=== PATIENT | female | born 1960 | race Caucasian/White ===

== ENCOUNTER 2021-11-03 06:27 | Day surgery (SDC) | payer MEDICARE, MEDICAID, SELFPAY ==
[2021-10-28 08:37] VITALS: BMI 37.8
--- NOTE | 2021-10-30 11:56 | HO.ANESPROP2 ---
Documented by User: Tova Smallwood NP 10/30/21 11:57 HPI - Anesthesia Eval Consult details Narrative: 61yo F for Upper Endoscopy antiphospholipid symdrome (CVA x 2, last 2008); on asa PMFSH Past Medical History Medical History (Updated 10/28/21 @ 08:37 by Denita Mercedes RN) Antiphospholipid antibody syndrome Atrial fibrillation Borderline diabetes Breast cancer CVA (cerebral vascular accident) Elevated cholesterol GERD (gastroesophageal reflux disease) History of COVID-19 HTN (hypertension) Palpitations Sleep apnea Surgical History Surgical History (Updated 10/28/21 @ 08:18 by Denita Mercedes RN) History of surgical removal of ganglion cyst Hx of right mastectomy Hx of tubal ligation Social History Social History Patient Tobacco Use Status: Former Tobacco user Quit Date: 1999 Tobacco use type: Cigarette Use of substances other than those prescribed or required for medical reasons: No Have you been hit, kicked, punched, or otherwise hurt by someone within the past year? If so, by whom?: No Are you DNR?: No Advance Directives: No Advance Directives Information Provided: Yes (brochure mailed) Advance Directives on File: No Recently lost weight without trying: No Eating poorly because of decreased appetite: No Nutrition Risks: No Nutritional Risk Meds Allergies Allergy/AdvReac Type Severity Reaction Status Date / Time morphine Allergy Intermediate vomiting Verified 10/28/21 08:34 topiramate [Topamax] Allergy Intermediate psychotic Verified 10/28/21 08:34 metoclopramide [Reglan] Allergy Mild Unknown Verified 11/03/21 06:40 Home Medications Medication Instructions Recorded Confirmed Last Taken Type alirocumab 150 mg/mL subcutaneous 150 mg subcut Q14D 10/28/21 10/28/21 Unknown History pen injector (Praluent Pen) aspirin 81 mg tablet,delayed 81 mg PO DAILY 10/28/21 10/28/21 Unknown History release bupropion HCl 150 mg 24 hr tablet, 150 mg PO QAM 10/28/21 10/28/21 11/03/21 History extended release furosemide 20 mg tablet 20 mg PO DAILY 10/28/21 10/28/21 Unknown History lamotrigine 100 mg tablet 100 mg PO DAILY 10/28/21 10/28/21 Unknown History lisinopril 20 mg tablet 20 mg PO DAILY 10/28/21 10/28/21 Unknown History metoprolol succinate 25 mg 25 mg PO DAILY 10/28/21 10/28/21 11/03/21 History tablet,extended release 24 hr omeprazole 20 mg tablet,delayed 20 mg PO DAILY 10/28/21 10/28/21 Unknown History release semaglutide 14 mg tablet (Rybelsus) 14 mg PO DAILY 10/28/21 10/28/21 Unknown History Exam Exam Date and Time: October 30, 2021 115 Height,Weight and Vital Signs: Height 5 ft 5 in Weight 102.965 kg Assessment and Plan Assessment Anesthesia Assessment: Chart Reviewed Documented by User: Lelo Hager MD 11/03/21 08:16 PMF Active Problems Active Problems: Fell yesterday. Did not hit head Past Medical History Medical History (Updated 10/28/21 @ 08:37 by Denita Mercedes RN) Antiphospholipid antibody syndrome Atrial fibrillation Borderline diabetes Breast cancer CVA (cerebral vascular accident) Elevated cholesterol GERD (gastroesophageal reflux disease) History of COVID-19 HTN (hypertension) Palpitations Sleep apnea Family History Family history of problems with anesthesia: No Surgical History Surgical History (Updated 10/28/21 @ 08:18 by Denita Mercedes RN) History of surgical removal of ganglion cyst Hx of right mastectomy Hx of tubal ligation History of Problems with Anesthesia: No Social History Social History Patient Tobacco Use Status: Former Tobacco user Quit Date: 1999 Tobacco use type: Cigarette Use of substances other than those prescribed or required for medical reasons: No Have you been hit, kicked, punched, or otherwise hurt by someone within the past year? If so, by whom?: No Are you DNR?: No Advance Directives: No Advance Directives Information Provided: Yes (brochure mailed) Advance Directives on File: No Recently lost weight without trying: No Eating poorly because of decreased appetite: No Nutrition Risks: No Nutritional Risk Meds Allergies Allergy/AdvReac Type Severity Reaction Status Date / Time morphine Allergy Intermediate vomiting Verified 10/28/21 08:34 topiramate [Topamax] Allergy Intermediate psychotic Verified 10/28/21 08:34 metoclopramide [Reglan] Allergy Mild Unknown Verified 11/03/21 06:40 Home Medications Medication Instructions Recorded Confirmed Last Taken Type alirocumab 150 mg/mL subcutaneous 150 mg subcut Q14D 10/28/21 10/28/21 Unknown History pen injector (Praluent Pen) aspirin 81 mg tablet,delayed 81 mg PO DAILY 10/28/21 10/28/21 Unknown History release bupropion HCl 150 mg 24 hr tablet, 150 mg PO QAM 10/28/21 10/28/21 11/03/21 History extended release furosemide 20 mg tablet 20 mg PO DAILY 10/28/21 10/28/21 Unknown History lamotrigine 100 mg tablet 100 mg PO DAILY 10/28/21 10/28/21 Unknown History lisinopril 20 mg tablet 20 mg PO DAILY 10/28/21 10/28/21 Unknown History metoprolol succinate 25 mg 25 mg PO DAILY 10/28/21 10/28/21 11/03/21 History tablet,extended release 24 hr omeprazole 20 mg tablet,delayed 20 mg PO DAILY 10/28/21 10/28/21 Unknown History release semaglutide 14 mg tablet (Rybelsus) 14 mg PO DAILY 10/28/21 10/28/21 Unknown History Exam Height,Weight and Vital Signs: Height 5 ft 5 in Weight 102.965 kg Vital Signs Temp Pulse Resp BP Pulse Ox O2 Del Method 11/03/21 06:40 96.6 F L 80 16 132/85 97 Room Air Pertinent Lab Results Pertinent Lab Results: Lab Results 11/03/21 Range/Units 06:51 POC Glucose 119 H (60-115) mg/dL Airway Mallampati Class: III TM Dist: >3cm Neck ROM: Limited (Limited extension-sore) Loose/Missing/Broken Teeth: Yes (Broken) Heart: RRR Lungs: CTAB Assessment and Plan Assessment Anesthesia Assessment: Anesthesia Plan Discussed Final Anesthetic Review Family History of Problems with Anesthesia: No History of Problems with Anesthesia: No NPO: Yes ASA Class: III Final Preanesthetic Review: No Changes in Pt Med Stat, Meds/Allgs Chart Reviewed, Consent Obtained/Reviewed and Anes Risks/Benef Reviewed Patient Risk: Intermediate Procedure Risk: Low Assessment/Block/Sedation in SS: Assess/Block/Sedation-SS Anesthetic Plan Anesthetic Plan: MAC: Disposition: Standard PACU
[2021-11-03 06:40] VITALS: BP 132/85; PULSE 80; RESP 16; TEMP 35.9; O2SAT 97
[2021-11-03] MEDS: Lactated Ringers 1,000 ML 100 ML IVCONT (06:55)
[2021-11-03 07:00] LABS: Glucose, Whole Blood 119 mg/dL (60-115)
--- NOTE | 2021-11-03 07:25 | MHC.SHP ---
Pre-Procedural Eval Section A Date of Service: 11/03/21 Section B Chief Complaint: abnormal findings on imagng Details of Present Illness: see H&P no changes Relevant Family History (Specify if Yes): No Relevant Social History: None Present Medications: see Short Stay Collaborative assessment Medical History: No relevant PMH History of Previous Operations: No relevant previous surgery Allergies: Allergies Allergy/AdvReac Type Severity Reaction Status Date / Time morphine Allergy Intermediate vomiting Verified 10/28/21 08:34 topiramate [Topamax] Allergy Intermediate psychotic Verified 10/28/21 08:34 metoclopramide [Reglan] Allergy Mild Unknown Verified 11/03/21 06:40 Review of Systems Sugical H&P ROS: Negative: Constitution, Cardiovascular, Respiratory, Neurological, Psychiatric, Hem-Onc, Allergic/Immunologic, Gastrointestinal, Genitourinary, Musculoskeletal, Integumentary, Endocrine and Eyes/Ears/Nose/Throat Exam Surgical H&P Exam: Normal: HEENT, Normal: Heart, Normal: Lungs, Normal: Extremities, Normal: Abdomen, Normal: Skin and Normal: Neurological Plan Diagnosis/Plan: Unchanged I have reviewed the history and physical and performed a pertinent physical examination on my patient. No changes have occurred unless specified.
--- NOTE | 2021-11-03 07:51 | PM.OP ---
Brief Operative Note Date of Service: 11/03/21 Pre-op diagnosis: abnl ugi Post-op diagnosis: same (normal) Procedure: EGD Surgeon: Eugenio Millard Anesthesia: MAC Was an [employer] Senior Manager used for this Procedure?: No Estimated blood loss (mL): 2 Pathology: other Condition: stable Disposition: PACU
[2021-11-03 07:56] VITALS: BP 82/45; PULSE 75; RESP 16; TEMP 36.2; O2SAT 97
[2021-11-03 08:11] VITALS: BP 102/59; PULSE 86; RESP 16; O2SAT 92
[2021-11-03 08:26] VITALS: BP 106/62; PULSE 78; RESP 16; TEMP 36.2; O2SAT 95
--- NOTE | 2021-11-03 09:14 | OP_ITS ---
SURGEON: Eugenio Millard MD INDICATIONS: Abnormal x-ray of the upper GI tract and gastroesophageal reflux disease. PREOPERATIVE DIAGNOSIS: POSTOPERATIVE DIAGNOSIS: PROCEDURE PERFORMED: Upper endoscopy with biopsy. 11/03/21 ESTIMATED BLOOD LOSS: COMPLICATIONS: ANESTHESIA: ASSISTANTS: SPECIMENS: MEDICATIONS: Monitored anesthesia care. DESCRIPTION OF PROCEDURE: History and physical performed. The risks and benefits of the procedure were explained to the patient. Informed consent was obtained. The patient was placed in the left lateral decubitus position. The Olympus videogastroscope was introduced into the esophagus, stomach, and duodenum. Examination was performed. The scope was removed. She tolerated the procedure well and was returned to Recovery in stable condition. FINDINGS: Esophagus: The esophagus was normal. There was no esophagitis. There was an irregular EG junction. Biopsies were obtained from the EG junction. Stomach: The stomach showed no evidence of masses, ulcers, or polyps. Antral biopsies were obtained to rule out H pylori. Duodenum: The bulb and second portion were normal. IMPRESSION: Normal upper endoscopy. RECOMMENDATION: Follow up the biopsy results. MD LORENA Sanchez/MODL / [id number] MTDD
== END 2021-11-03 08:58 | disposition home or self-care (01) ==
PROVIDERS: PCP Family Medicine; Visit Provider Internal Medicine Gastroenterology
PROC: 0DJ08ZZ Inspection of Upper Intestinal Tract, Via Natural or Artificial Opening Endoscopic (ICD-10-PCS; CPT 43235; principal; 2021-11-03 07:30)
DX: R93.3 Abnormal findings on diagnostic imaging of other parts of digestive tract (principal); K21.9 Gastro-esophageal reflux disease without esophagitis; I10 Essential (primary) hypertension; R73.03 Prediabetes; E78.00 Pure hypercholesterolemia, unspecified; G47.33 Obstructive sleep apnea (adult) (pediatric); D68.61 Antiphospholipid syndrome; Z79.899 Other long term (current) drug therapy; Z79.82 Long term (current) use of aspirin; Z86.73 Personal history of transient ischemic attack (TIA), and cerebral infarction without residual deficits; Z85.3 Personal history of malignant neoplasm of breast; Z90.11 Acquired absence of right breast and nipple; Z86.16 Personal history of COVID-19; Z88.8 Allergy status to other drugs, medicaments and biological substances
CPT/HCPCS: 43239; 82947; 88305; 88342